=== PATIENT | male | born 1980 | race Caucasian/White ===

== ENCOUNTER 2020-08-25 01:15 | Outpatient (CLI) | payer OTHER | END 2020-08-25 01:16 | disposition critical access hospital (66) | LOC: EMS 01:15 | DX: L50.9 Urticaria, unspecified (principal) | CPT/HCPCS: A0425; A0427 ==

== ENCOUNTER 2020-08-25 01:43 | Emergency (ER) | payer OTHER ==
[2020-08-25] MEDS ORDERED: SODIUM CHLORIDE 0.9% 1,000 ML IV STA (01:58)
[2020-08-25] MEDS ORDERED: EPINEPHrine 1 MG/ML AMP IM STA (01:58)
[2020-08-25] MEDS ORDERED: DEXAMETHASONE 10 MG/ML VIAL IVP STA (01:58)
[2020-08-25] MEDS ORDERED: ONDANSETRON 4 MG/2 ML VIAL IVP STA (02:31)
[2020-08-25 04:38] VITALS: BP 111/62
--- NOTE | 2020-08-26 13:42 | ED Physician Documentation ---
PD HPI SKIN - Stated complaint Stated Complaint: ALLERGIC RXN - Chief complaint Chief Complaint: Heent - History of Present Illness Timing - onset: How many minutes ago (30), Today Timing - details: Abrupt onset Location: Bodywide (developed redness, itching and some feeling of dyspnea/lightheaded while in movie theater) Quality / character: Itchy, Burning, Discolored (red). No: Swelling Associated symptoms: Dyspnea. No: Fever, Myalgias, N/V/D Contributing factors: Exposed to food (was eating [employer] theater popcorn) Similar symptoms before: No diagnosis (this happened once before with [employer] popcorn a year ago, and mild reaction once at a [employer].) Recently seen: Not recently seen Review of Systems Constitutional: denies: Fever, Chills Nose: denies: Rhinorrhea / runny nose, Congestion Throat: denies: Sore throat Respiratory: denies: Cough GI: denies: Abdominal Pain, Nausea, Vomiting, Diarrhea Neurologic: denies: Generalized weakness, Near syncope, Altered mental status PD PAST MEDICAL HISTORY - Past Medical History Past Medical History: No Cardiovascular: None Respiratory: None Neuro: None Endocrine/Autoimmune: None - Past Surgical History Past Surgical History: Yes HEENT: Other - Present Medications Home Medications: Ambulatory Orders Medication Instructions Recorded Confirmed Cetirizine [ZyrTEC] 10 mg PO DAILY #15 tablet 08/25/20 EPINEPHrine [Epinephrine] 0.3 mg IJ ONCE PRN #1 syr 08/25/20 Loratadine [Claritin] 10 mg PO DAILY 08/25/20 08/25/20 dexAMETHasone [Decadron] 4 mg PO DAILY #5 tablet 08/25/20 - Allergies Allergies/Adverse Reactions: Allergies Allergy/AdvReac Type Severity Reaction Status Date / Time No Known Drug Allergies Allergy Verified 08/25/20 01:55 - Social History Does the pt smoke?: No Smoking Status: Never smoker Does the pt drink ETOH?: Yes Does the pt have substance abuse?: No - Immunizations Immunizations are current?: Yes - POLST Patient has POLST: No PD ED PE NORMAL - Vitals Vital signs reviewed: Yes - General General: Alert and oriented X 3, Well developed/nourished - HEENT HEENT: Pharynx benign (no edema noted) - Neck Neck: Supple, no meningeal sign, No adenopathy - Cardiac Cardiac: RRR, No murmur - Respiratory Respiratory: Clear bilaterally - Abdomen Abdomen: Normal bowel sounds, Soft, Non tender - Derm Derm: Warm and dry. No: Normal color - Extremities Extremities: Other (general redness with blotchy slightly raised areas c/w hives. Nonvesicular. ) - Neuro Neuro: Alert and oriented X 3, No motor deficit, Normal speech Results - Vitals Vitals: Oxygen O2 Source Room air PD MEDICAL DECISION MAKING - ED course Complexity details: re-evaluated patient (he is improved and staying well after couple hours.), considered differential (having hives that are some improved with benadryl by medics. However still some itching/rash, and still feeling lightheaded with faint feeling dyspnea. Can give epi and steroids. Consider t ype of oil used, and also to ask theater if additive such as MSG.), d/w patient, d/w family (spouse) ED course: diagnosis: acute food allergy reaction anaphylactoid reaction Departure - Departure Disposition: 01 Home, Self Care Condition: Stable Instructions: ED Allergic React Food Prescriptions: dexAMETHasone [Decadron] 4 mg PO DAILY #5 tablet EPINEPHrine [Epinephrine] 0.3 mg IJ ONCE PRN #1 syr PRN Reason: Anaphylaxis Cetirizine [ZyrTEC] 10 mg PO DAILY #15 tablet Comments: Stay well-hydrated. Try to stay cool and out of the sun later today as warmth or increased blood flow can bring the itchiness back again more easily. Commonly reaction like this may linger for 2 or 3 days. Add cetirizine antihistamine twice daily for 2 to 3 days and then once daily after that for a week or 2. Decadron steroid daily for 5 more days. Carry EpiPen with you as this not clear what the food trigger was. You could talk with the movie theater and see what kind of oil or seasoning they use on their popcorn if that gives any leads or clues. Resume normal activity after a day or 2 if you are feeling well. Discharge Date/Time: 08/25/20 04:39
== END 2020-08-25 04:39 | disposition home or self-care (01) ==
LOC: ED 01:43
DX: T78.1XXA Other adverse food reactions, not elsewhere classified, initial encounter (principal)
CPT/HCPCS: 96374; 96375; 99284